=== PATIENT | male | born 1965 | race Caucasian/White ===

== ENCOUNTER 2020-06-26 18:54 | Emergency (ER) | payer BC ==
--- NOTE | 2020-06-26 19:33 | EDM.PDOC ---
ED HPI GENERAL MEDICAL PROBLEM - General Chief Complaint: Laceration Stated Complaint: LEFT INDEX FINGER LACERATION Time Seen by Provider: 06/26/20 19:16 Source of Information: Reports: Patient History Limitations: Reports: No Limitations - History of Present Illness INITIAL COMMENTS - FREE TEXT/NARRATIVE: Patient states approximately at 4:30 PM this afternoon while opening a package she cut the top of his left first finger with a steel box toe inserter where he washed it off at home the warm soapy water try to get the bleeding to stop but states he could not and then he presented here to the ER. He denies any numbness or tingling or loss of sensation or loss of function. His tetanus is up-to-date He has no other complaints at this time Onset: Today Duration: Minutes: Location: Reports: Upper Extremity, Left Severity: Mild (1) Improves with: Reports: None Worsens with: Reports: None Associated Symptoms: Reports: No Other Symptoms Left Finger-Index Pain Score (Numeric/FACES): 1 - Related Data Allergies Allergy/AdvReac Type Severity Reaction Status Date / Time No Known Allergies Allergy Verified 06/26/20 19:09 Home Meds: Home Meds allopurinoL [Zyloprim] 2 tab PO DAILY 05/26/18 [History] Past Medical History Cardiovascular History: Reports: High Cholesterol Respiratory History: Reports: Sleep Apnea Genitourinary History: Reports: Other (See Below) Other Genitourinary History: hematuria Musculoskeletal History: Reports: Gout Endocrine/Metabolic History: Reports: Obesity/BMI 30+, Other (See Below) Other Endocrine/Metabolic History: gout - Past Surgical History HEENT Surgical History: Reports: Tonsillectomy Social & Family History - Tobacco Use Tobacco Use Status *Q: Never Tobacco User ED ROS GENERAL - Review of Systems Review Of Systems: See Below Constitutional: Reports: No Symptoms Respiratory: Reports: No Symptoms Cardiovascular: Reports: No Symptoms Endocrine: Reports: No Symptoms Musculoskeletal: Reports: No Symptoms Skin: Reports: No Symptoms Neurological: Reports: No Symptoms Hematologic/Lymphatic: Reports: No Symptoms Immunologic: Reports: No Symptoms ED EXAM, SKIN/RASH Exam: See Below Exam Limited By: No Limitations General Appearance: Alert, WD/WN, No Apparent Distress Throat/Mouth: Normal Inspection, Normal Lips, Normal Voice, No Airway Compromise Respiratory/Chest: No Respiratory Distress Neurological: Alert, Oriented, Normal Cognition, Normal Gait, Normal Reflexes, No Motor/Sensory Deficits Skin: Warm, Dry, Intact, Normal Color, No Rash Comments: Exam to the left hand patient has approximately 1 cm linear laceration to the posterior aspect of the first finger at the PIP area it measures approximate 1 cm x 3 mm x 2 mm he has normal FDS FDP and extension strong cap refill and equal soft touch sensation strong radial strong ulnar pulses Course - Vital Signs Text/Narrative:: The area was soaked with Hibiclens normal saline it was irrigated with Hibiclens normal saline area was prepped in the sterile field and closed with number three simple interrupted sutures using 4-0 Ethilon no anesthesia was used and the patient tolerated procedure well it was covered with Neosporin Telfa pad 4 x 4 and Coban patient was rechecked with normal FDS FDP and extension equal soft touch sensation positive cap refill patient was given wound care instructions with a verbal understanding Last Recorded V/S: Last Vital Signs Temp 37.1 C 06/26/20 19:00 Pulse 72 06/26/20 19:00 Resp 16 06/26/20 19:00 BP 173/72 H 06/26/20 19:00 Pulse Ox 96 06/26/20 19:00 Departure - Departure Time of Disposition: 19:30 Disposition: Home, Self-Care 01 Condition: Good Clinical Impression: Laceration of finger - Discharge Information *PRESCRIPTION DRUG MONITORING PROGRAM REVIEWED*: Not Applicable *COPY OF PRESCRIPTION DRUG MONITORING REPORT IN PATIENT MARY: Not Applicable Instructions: Laceration Care, Adult, [id number] Referrals: Luh Yost MD [Primary Care Provider] - Forms: ED Department Discharge Additional Instructions: Follow-up with your primary care provider in the next 48 to 72 hours for wound recheck Return to the emergency room if anything changes or gets worse Have the stitches removed in 7 to 10 days Keep the area clean with warm soapy water change the dressing twice a day If you see any signs of redness swelling increased pain or drainage from the area go to your local primary provider return to the emergency room Sepsis Event Note (ED) - Evaluation Sepsis Screening Result: No Definite Risk - Focused Exam Vital Signs: Vital Signs Temp Pulse Resp BP Pulse Ox 06/26/20 19:00 37.1 C 72 16 173/72 H 96 - Problem List & Annotations (1) Laceration of finger SNOMED Code(s): 779731660 Code(s): S61.219A - LACERATION W/O FB OF UNSP FINGER W/O DAMAGE TO NAIL, INIT Status: Acute Current Visit: Yes
== END 2020-06-26 19:40 | disposition home or self-care (01) ==
LOC: VM.ED 18:54
DX: S61.211A Laceration without foreign body of left index finger without damage to nail, initial encounter (principal); M10.9 Gout, unspecified; E66.9 Obesity, unspecified; Z68.41 Body mass index [BMI] 40.0-44.9, adult; W26.8XXA Contact with other sharp object(s), not elsewhere classified, initial encounter; Y92.009 Unspecified place in unspecified non-institutional (private) residence as the place of occurrence of the external cause
CPT/HCPCS: 12001; 99282-25; 99283

== ENCOUNTER 2023-09-06 06:49 | Day surgery (SDC) | payer BC ==
[2023-09-06] MEDS: Lactated Ringers 1,000 ML IV SCH (07:26)
[2023-09-06] MEDS ORDERED: Propofol 200 MG/20 ML SDV ONE ×2 (07:52→09:02)
[2023-09-06] MEDS ORDERED: fentaNYL 100 MCG/2 ML SDV ONE (07:53)
== END 2023-09-06 10:40 | disposition home or self-care (01) ==
LOC: VM.SDS 06:49
PROVIDERS: ATTEND Student in an Organized Health Care Education/Training Program
DX: Z12.11 Encounter for screening for malignant neoplasm of colon (principal); D12.3 Benign neoplasm of transverse colon; K63.5 Polyp of colon; E66.9 Obesity, unspecified; E78.5 Hyperlipidemia, unspecified; R31.9 Hematuria, unspecified; M10.9 Gout, unspecified; G47.33 Obstructive sleep apnea (adult) (pediatric); Z68.41 Body mass index [BMI] 40.0-44.9, adult; Z86.010 Personal history of colon polyps; Z79.899 Other long term (current) drug therapy
CPT/HCPCS: 00811; J2704; J3010; J7120